=== PATIENT | male | born 1955 | race Caucasian/White ===

== ENCOUNTER 2023-06-14 06:29 | Day surgery (SDC) | payer MEDICARE, OTHER ==
[2023-06-14] MEDS ORDERED: fentaNYL 100 MCG/2 ML SDV IV ONE ×3 (06:30→08:09)
[2023-06-14] MEDS ORDERED: Dextrose 5%-0.45% NaCl 1,000 ML IV SCH (06:30)
[2023-06-14] MEDS ORDERED: Midazolam 1 MG/ML 2 ML SDV IV ONE ×3 (06:30→08:10)
[2023-06-14] MEDS ORDERED: Midazolam 1 MG/ML 2 ML SDV ONE (07:38)
[2023-06-14] MEDS ORDERED: fentaNYL 100 MCG/2 ML SDV ONE (07:39)
[2023-06-14 10:40] VITALS: BP 109/60; PULSE 53
== END 2023-06-14 10:15 | disposition home or self-care (01) ==
LOC: DL.ENDO 06:29
PROVIDERS: ATTEND Internal Medicine Gastroenterology
DX: K25.9 Gastric ulcer, unspecified as acute or chronic, without hemorrhage or perforation (principal); N40.0 Benign prostatic hyperplasia without lower urinary tract symptoms; J44.9 Chronic obstructive pulmonary disease, unspecified; E78.5 Hyperlipidemia, unspecified; Z85.118 Personal history of other malignant neoplasm of bronchus and lung
CPT/HCPCS: 87077; 88305; J2250; J3010; J7042

== ENCOUNTER 2024-10-09 06:25 | Emergency (ER) | payer MEDICARE, OTHER ==
[2024-10-09 06:45] VITALS: BP 118/60; PULSE 82
[2024-10-09] MEDS ORDERED: Sodium Chloride 0.9% 10 ML Syringe FLUSH PRN (06:52)
[2024-10-09] MEDS ORDERED: Sodium Chloride 0.9% 500 ML IV SCH (07:00)
[2024-10-09 07:08] LABS: BASOPHILS PERCENT AUTO 0.2 % (0.0-1.0); EOSINOPHILS PERCENT AUTO 1.4 % (1.0-3.0); HEMATOCRIT 39.5 % (40.0-54.0); HEMOGLOBIN 13.5 g/dL (14.0-18.0); LYMPHOCYTES PERCENT AUTO 34.4 % (20.5-50.1); MEAN CORPUSCULAR HGB CONC 34.2 g/dL (33.0-35.0); MEAN CORPUSCULAR VOLUME 90.6 fL (80-100); MONOCYTES PERCENT AUTO 15.2 % (2-8); NEUTROPHILS PERCENT AUTO 48.8 % (42.2-75.2); PLATELET COUNT,PLT 175 10^3/uL (150-450); RED BLOOD CELL COUNT 4.36 10^6/uL (4.6-6.2); WHITE BLOOD CELL COUNT,WBC 5.1 10^3/uL (5.0-10.0)
[2024-10-09] MEDS: Ondansetron 4 MG/2 ML SDV IVPUSH ONE (07:10)
[2024-10-09] MEDS: Morphine 2 MG/ML SYRINGE ONE (07:10)
[2024-10-09] MEDS: Lactated Ringers 1,000 ML IV ONE (07:11)
[2024-10-09] MEDS: Morphine PF 5 MG/10 ML SDV IV ONE (07:12)
[2024-10-09 07:23] LABS: CALCIUM 9.2 mg/dL (8.5-10.1); CREATININE 0.99 mg/dL (0.70-1.30); EST CRCL DRUG DOSING (CG) 65.34 mL/min
[2024-10-09] MEDS: Ketorolac 30 MG/ML SDV IVPUSH ONE (07:51)
[2024-10-09] MEDS: Cyclobenzaprine 10 MG Tab PO ONE (07:51)
== END 2024-10-09 08:47 | disposition home or self-care (01) ==
LOC: DL.ED 06:25
DX: S16.1XXA Strain of muscle, fascia and tendon at neck level, initial encounter (principal); E78.00 Pure hypercholesterolemia, unspecified; Z86.16 Personal history of COVID-19; Z87.891 Personal history of nicotine dependence; Z79.899 Other long term (current) drug therapy; X58.XXXA Exposure to other specified factors, initial encounter; Y93.9 Activity, unspecified
CPT/HCPCS: 36415; 72125; 80048; 85025; 87428; 96361; 96374; 96375; 99284; A9270; J1885; J2270; J2405; J7120

== ENCOUNTER 2024-10-21 12:46 | Emergency (ER) | payer MEDICARE, OTHER ==
[2024-10-21] MEDS ORDERED: Diazepam 2 MG Tab PO ONE (12:47)
[2024-10-21 13:38] VITALS: BP 116/61; PULSE 82
[2024-10-21] MEDS: Ondansetron 4 MG Tab.DIS PO ONE (14:00)
[2024-10-21] MEDS: Ketorolac 30 MG/ML SDV IM ONE (14:04)
[2024-10-21] MEDS: Take Home: Ondansetron 4 MG Tab.DIS, 5 Tab Pack PO ONE (14:57)
[2024-10-21] MEDS: Diazepam 2 MG Tab ONE (14:57)
[2024-10-21] MEDS: Diazepam 2 MG Tab PO ONE ×2 (14:57→14:58)
== END 2024-10-21 15:05 | disposition home or self-care (01) ==
LOC: DL.ED 12:46
DX: M54.2 Cervicalgia (principal); R11.0 Nausea; J44.9 Chronic obstructive pulmonary disease, unspecified; E78.00 Pure hypercholesterolemia, unspecified; Z79.899 Other long term (current) drug therapy; Z86.16 Personal history of COVID-19
CPT/HCPCS: 96372; 99283; A9270; J1885; J3360; Q0162

== ENCOUNTER 2024-11-01 09:28 | Emergency (ER) | payer MEDICARE, OTHER ==
[2024-11-01 09:42] VITALS: BP 119/71; PULSE 76
[2024-11-01] MEDS: Lactated Ringers 1,000 ML IV ONE (10:01)
[2024-11-01 10:03] LABS: BASOPHILS PERCENT AUTO 0.4 % (0.0-1.0); EOSINOPHILS PERCENT AUTO 6.4 % (1.0-3.0); HEMATOCRIT 38.7 % (40.0-54.0); HEMOGLOBIN 12.9 g/dL (14.0-18.0); LYMPHOCYTES PERCENT AUTO 33.8 % (20.5-50.1); MEAN CORPUSCULAR HEMOGLOBIN 30.9 pg (27.0-34.0); MEAN CORPUSCULAR HGB CONC 33.3 g/dL (33.0-35.0); MEAN CORPUSCULAR VOLUME 92.6 fL (80-100); MONOCYTES PERCENT AUTO 13.9 % (2-8); NEUTROPHILS PERCENT AUTO 45.5 % (42.2-75.2); PLATELET COUNT,PLT 150 10^3/uL (150-450); RED BLOOD CELL COUNT 4.18 10^6/uL (4.6-6.2); WHITE BLOOD CELL COUNT,WBC 4.8 10^3/uL (5.0-10.0)
[2024-11-01 10:24] LABS: ALANINE AMINOTRANSFERASE,ALT 19 U/L (16-63); ALBUMIN 3.2 g/dL (3.4-5.0); ALKALINE PHOSPHATASE 38 U/L (46-116); ANION GAP 8.8 mEq/L (7-13); ASPARTATE AMNIOTRANSFERASE,AST 18 U/L (15-37); BILIRUBIN TOTAL 0.8 mg/dL (0.2-1.0); BLOOD UREA NITROGEN,BUN 19 mg/dL (7-18); BUN/CREATININE RATIO 16.2 (No establ ref range); CALCIUM 9.8 mg/dL (8.5-10.1); CARBON DIOXIDE,CO2 30 mmol/L (21-32); CHLORIDE,CL 100 mmol/L (98-107); CREATININE 1.17 mg/dL (0.70-1.30); GLUCOSE RANDOM 117 mg/dL (70-99); MAGNESIUM 1.6 mg/dL (1.8-2.4); PHOSPHORUS 3.9 mg/dL (2.6-4.7); POTASSIUM,K 3.8 mmol/L (3.5-5.1); PROTEIN TOTAL,TP 6.1 g/dL (6.4-8.2); SODIUM,NA 135 mmol/L (136-145)
[2024-11-01 10:25] LABS: ESTIMATED GFR 68 mL/min (>=60)
[2024-11-01] MEDS: Magnesium Sulf/Wat 2 GM/50 mL 2 GM in Premix Bag 1 BAG IV ONE (10:42)
== END 2024-11-01 11:18 | disposition home or self-care (01) ==
LOC: DL.ED 09:28
DX: C80.1 Malignant (primary) neoplasm, unspecified (principal); R53.0 Neoplastic (malignant) related fatigue; E83.42 Hypomagnesemia; E78.00 Pure hypercholesterolemia, unspecified; J45.909 Unspecified asthma, uncomplicated; M19.90 Unspecified osteoarthritis, unspecified site; Z79.899 Other long term (current) drug therapy; Z79.51 Long term (current) use of inhaled steroids; Z86.16 Personal history of COVID-19
CPT/HCPCS: 36415; 80053; 83735; 84100; 85025; 96361; 96365; 99284; 99285; J3475; J7120

== ENCOUNTER 2024-11-09 12:21 | Emergency (ER) | payer MEDICARE, OTHER ==
[2024-11-09 13:01] LABS: BASOPHILS PERCENT AUTO 0.4 % (0.0-1.0); EOSINOPHILS PERCENT AUTO 5.5 % (1.0-3.0); HEMOGLOBIN 10.9 g/dL (14.0-18.0); LYMPHOCYTES PERCENT AUTO 31.1 % (20.5-50.1); MEAN CORPUSCULAR HEMOGLOBIN 29.5 pg (27.0-34.0); MEAN CORPUSCULAR HGB CONC 32.1 g/dL (33.0-35.0); MEAN CORPUSCULAR VOLUME 92.1 fL (80-100); MONOCYTES PERCENT AUTO 14.4 % (2-8); NEUTROPHILS PERCENT AUTO 48.6 % (42.2-75.2); PLATELET COUNT,PLT 144 10^3/uL (150-450); RED BLOOD CELL COUNT 3.69 10^6/uL (4.6-6.2); WHITE BLOOD CELL COUNT,WBC 5.1 10^3/uL (5.0-10.0)
[2024-11-09 13:16] LABS: ALANINE AMINOTRANSFERASE,ALT 17 U/L (16-63); ALKALINE PHOSPHATASE 37 U/L (46-116); ANION GAP 12.9 mEq/L (7-13); ASPARTATE AMNIOTRANSFERASE,AST 14 U/L (15-37); BILIRUBIN TOTAL 0.7 mg/dL (0.2-1.0); BLOOD UREA NITROGEN,BUN 14 mg/dL (7-18); BUN/CREATININE RATIO 14.3 (No establ ref range); C-REACTIVE PROTEIN 0.61 ng/dL (<=0.50); CALCIUM 9.6 mg/dL (8.5-10.1); CARBON DIOXIDE,CO2 28 mmol/L (21-32); CHLORIDE,CL 100 mmol/L (98-107); CREATININE 0.98 mg/dL (0.70-1.30); GLUCOSE RANDOM 84 mg/dL (70-99); POTASSIUM,K 3.9 mmol/L (3.5-5.1); PROTEIN TOTAL,TP 5.8 g/dL (6.4-8.2); SODIUM,NA 137 mmol/L (136-145)
[2024-11-09 13:19] LABS: A/G RATIO 1.07; ESTIMATED GFR 85 mL/min (>=60); LACTIC ACID 0.7 mmol/L (0.4-2.0)
[2024-11-09] MEDS: cefTRIAXone 2 GM Vial IVPUSH ONE (14:12)
[2024-11-09] MEDS: Sodium Chloride 0.9% 10 ML Syringe FLUSH PRN (14:14)
[2024-11-09 15:02] VITALS: BP 109/70; PULSE 70
== END 2024-11-09 15:35 | disposition home or self-care (01) ==
LOC: DL.ED 12:21
DX: J18.9 Pneumonia, unspecified organism (principal); E78.00 Pure hypercholesterolemia, unspecified; J44.9 Chronic obstructive pulmonary disease, unspecified; Z88.8 Allergy status to other drugs, medicaments and biological substances; Z79.51 Long term (current) use of inhaled steroids; Z79.899 Other long term (current) drug therapy; Z86.16 Personal history of COVID-19
CPT/HCPCS: 36415; 80053; 83605; 85025; 86140; 87040; 96374; 99284; J0696; J1642